=== PATIENT | male | born 1955 | race Caucasian/White ===

== ENCOUNTER 2025-01-23 10:29 | Emergency (ER) | payer MEDICARE, OTHER ==
[~2025-01-23] VITALS: Ht 177.8 cm; Wt 127.0 kg
--- NOTE | 2025-01-23 10:37 | ERN ---
ED Note History of Present Illness Stated Complaint: BACK PAIN Chief Complaint: Back Pain-No Injury Time Seen by MD: 10:30 Dictation: PATIENT IS A 69-YEAR-OLD MALE COMING IN TODAY WITH COMPLAINTS OF RIGHT LUMBAR PAIN ONSET A WEEK AGO AND GETTING WORSE. HE DENIES ANY TRAUMA OR PRIOR SURGERIES. NO CHANGE IN BOWEL OR BLADDER FUNCTION AND NO SCIATICA OR RADICULOPATHY. HE STATES HE HAS TAKING LEFTOVER TRAMADOL FROM A PRIOR SURGERY TO HIS SHOULDER, NO LOCAL DOCTOR. STATES HE HAS NOT TAKEN ANYTHING PRIOR TO ARRIVAL FOR PAIN TODAY. Allergies: Coded Allergies: Penicillins (Unverified Allergy, Unknown, 01/23/25) Home Meds Active Scripts Omeprazole (Omeprazole) 40 Mg Capsule.dr, 1 CAP PO DAILY for 30 Days, #30 CAP 0 Refills Prov:HENOK MENDEZ NP 01/23/25 Ibuprofen (Ibuprofen 800 mg Tab) 800 Mg Tab, 800 MG PO Q8H PRN for fever or pain, #30 TAB 0 Refills Prov:HENOK MENDEZ NP 01/23/25 Prednisone (Prednisone) 20 Mg Tablet, 1 TAB PO AD for 6 Days, #14 TAB 0 Refills TAKE 1 TAB BY MOUTH THREE TIMES PER DAY X3 DAYS, THEN TAKE 1 TAB BY MOUTH TWICE A DAY X2 DAYS, THEN TAKE 1 TAB BY MOUTH ONCE A DAY X1 DAY. Prov:HENOK MENDEZ NP 01/23/25 Cyclobenzaprine HCl (Cyclobenzaprine HCl) 10 Mg Tablet, 1 TAB PO TID for muscle spasms for 10 Days, #30 TAB 0 Refills Prov:HENOK MENDEZ NP 01/23/25 Past Medical History RN Note Reviewed/Agreed w/PFSH: Yes Review of System Dictation CONSTITUTIONAL: NEGATIVE EXCEPT FOR HPI HEAD/FACE: NEGATIVE EXCEPT FOR HPI EENT: NEGATIVE EXCEPT FOR HPI RESPIRATORY: NEGATIVE EXCEPT FOR HPI GASTROINTESTINAL/ABDOMINAL: NEGATIVE EXCEPT FOR HPI GENITOURINARY: NEGATIVE EXCEPT FOR HPI MUSCULOSKELETAL: NEGATIVE EXCEPT FOR HPI RIGHT LOW BACK PAIN INTEGUMENTARY: NEGATIVE EXCEPT FOR HPI NEUROLOGICAL/PSYCH: NEGATIVE EXCEPT FOR HPI HEMATOLOGIC/LYMPHATIC: NEGATIVE EXCEPT FOR HPI ALL SYSTEMS NEGATIVE, EXCEPT NOTED ABOVE. 13 POINT REVIEW OF SYSTEMS ASSESSED AND ALL NEGATIVE EXCEPT FOR ABOVE. Initial Vital Sign VS Vital Signs Date Time Temp Pulse Resp B/P (MAP) Pulse Ox O2 Delivery O2 Flow Rate FiO2 01/23/25 10:32 97.9 65 16 181/97 97 Room Air 0 01/23/25 11:49 21 Physical Exam Dictation VITAL SIGNS REVIEWED GENERAL APPEARANCE: ALERT, ORIENTED X 3, MODERATE ACUTE DISTRESS, WELL DEVELOPED, NOURISHED. HEAD AND FACE: NON-TRAUMATIC. EYES: PERRL, PINK CONJUNCTIVAS, EYELID NO TRAUMA, ANTERIOR CHAMBER WITH ARCUS SENILIS. EARS: PINNAS INTACT AND NO SIGNS OF TRAUMA OR ERYTHEMA EAR CANALS CLEAR AND NO DISCHARGE TM NO ERYTHEMA NOSE: NO DISCHARGE, NO BLEEDING. OROPHARYNX: MOUTH NORMAL, TONGUE PINK, PHARYNX CLEAR,NO ERYTHEMA, TONSILS NO EXUDATES, NO ABSCESSES NOTED, MUCOUS MEMBRANE MOIST NECK: SUPPLE, NON-TENDER, NO THYROMEGALY, NO MASSES, NO JVD, NO BRUITS BREAST:DEFERRED CHEST:NO TENDERNESS, NO CREPITUS, NO PARADOXICAL MOVEMENT, NO RETRACTIONS LUNGS:CLEAR, WELL-VENTILATED, SYMMETRIC, NO RALES, NO WHEEZING, NO RHONCHI, NO STRIDOR, GOOD BREATH SOUNDS BILATERALLY HEART: REGULAR RATE, REGULAR RHYTHM, NO MURMUR, NO GALLOPS VASCULAR: NO PERIPHERAL EDEMA, ABDOMEN: SOFT, POSITIVE BOWEL SOUNDS, NONDISTENDED, NO GUARDING, NONTENDER, NO REBOUND, NO MASSES NO HEPATOMEGALY, NO SPLENOMEGALY, NO NORIEGA'S SIGN, NO HERNIAS. RECTAL: DEFERRED GENITAL: DEFERRED NEUROLOGICAL: NORMAL SPEECH, MOTOR FUNCTION INTACT, SENSORY FUNCTION INTACT MUSCULOSKELETAL: NECK NONTENDER, FULL RANGE OF MOTION, RIGHT LATERAL LUMBOSACRAL TENDERNESS WITH SPASM NOTED., FULL RANGE OF MOTION, NEGATIVE STRAIGHT LEG RAISE BILATERALLY 10 EXTREMITIES: NONTENDER, FULL RANGE OF MOTION SKIN: COLOR PINK, DRY, NO TURGOR, NO RASH, NO LACERATIONS, NO ABRASIONS, NO CONTUSIONS. LYMPHATIC: DEFERRED Results (Laboratory/Radiology) Laboratory/Radiology LUMBAR X-RAY DEMONSTRATES DEGENERATIVE CHANGES ONLY. REASON: NON TRAUMA RIGHT LATERAL LUMBAR SACRAL PAIN. ORDERING PHYSICIAN: HENOK MENDEZ NP PROCEDURE: LUMB 2 3VW - LUMBAR SPINE 2-3VWS Exam Type: LUMBAR SPINE 2-3VWS Clinical Information: NON TRAUMA RIGHT LATERAL LUMBAR SACRAL PAIN. Comparison: None Findings: Exam of the lumbosacral spine demonstrates no evidence of fracture or subluxation. There are moderate spondylitic changes. The facet joints show moderate degenerative changes. There is straightening consistent with spasm. The disc spaces are intact. Bone mineralization is normal. Impression: Spondylitic changes and degenerative changes of the apophyseal joints as noted. Labs Reviewed?: Yes ED Course ED Course Orders Procedure Category Date Status Time Lumbar Spine 2-3vws RAD 01/23/25 Resulted 10:33 Dexamethasone 4mg/Ml PHA 01/23/25 Complete 1ml Vial (Dexametha 11:00 Cyclobenzaprine Hcl PHA 01/23/25 Complete (Cyclobenzaprine Hcl 11:00 Ketorolac 60mg/2ml PHA 01/23/25 Complete (Toradol 60mg/2ml) 11:00 Hydrocodone/Apap PHA 01/23/25 Complete 5/325 ([place] 5/325mg) 11:00 Current Medications Medications (Trade) Dose Ordered Sig/Cornelio Route PRN Reason Start Time Stop Time Status Last Admin Dose Admin Acetaminophen/ Hydrocodone Bitart (NORco 5/325MG) 1 tab ONCE ONCE PO 01/23/25 11:00 01/23/25 11:01 DC 01/23/25 11:59 Cyclobenzaprine HCl (Cyclobenzaprine HCl) 10 mg ONCE ONCE PO 01/23/25 11:00 01/23/25 11:01 DC 01/23/25 11:59 Dexamethasone Sodium Phosphate (dexaMETHasone 4MG/ML 1ML VIAL) 8 mg ONCE ONCE IM 01/23/25 11:00 01/23/25 11:01 DC 01/23/25 11:59 Ketorolac Tromethamine (toRADol 60MG/ 2ML) 60 mg ONCE ONCE IM 01/23/25 11:00 01/23/25 11:01 DC 01/23/25 11:59 Vital Signs Date Time Temp Pulse Resp B/P (MAP) Pulse Ox O2 Delivery O2 Flow Rate FiO2 01/23/25 11:49 97.9 62 16 167/74 97 Room Air* 0 21 01/23/25 10:32 97.9 65 16 181/97 97 Room Air 0 1132/PATIENT STATES PAIN MARKEDLY IMPROVED AFTER TREATMENT. WE WILL BE DISCHARGED HOME WITH IBUPROFEN FLEXERIL AND PREDNISONE. TOLD NO LIFTING OR ACCEPT MOVEMENTS UNTIL CLEARED BY HIS DOCTOR. HE WILL BE GIVEN A LIST OF LOCAL DOCTORS STATES HOWEVER HE IS GOING BACK TO [place] IN THREE WEEKS. Medical Decision Making MDM MEDICAL DISCHARGE MAKING BASED ON X-RAY AND PAIN MANAGEMENT. PATIENT SHOWS DEGENERATIVE CHANGES ON LUMBAR SPINE. HE WAS MADE AWARE HE MADE AN MRI IN THE NEXT SEVERAL DAYS WHEN HE SEES HIS DOCTOR IN [place] GIVEN PREDNISONE/IBUPROFEN/FLEXERIL/OMEPRAZOLE DX & DISP Disposition: Discharge Departure Impression: Primary Impression: Acute exacerbation of chronic low back pain Condition: Stable Scripts Omeprazole (Omeprazole) 40 Mg Capsule.dr 1 CAP PO DAILY for 30 Days, #30 CAP 0 Refills Prov: HENOK MENDEZ NP 01/23/25 Ibuprofen (Ibuprofen 800 mg Tab) 800 Mg Tab 800 MG PO Q8H PRN for fever or pain, #30 TAB 0 Refills Prov: HENOK MENDEZ NP 01/23/25 Prednisone (Prednisone) 20 Mg Tablet 1 TAB PO AD for 6 Days, #14 TAB 0 Refills TAKE 1 TAB BY MOUTH THREE TIMES PER DAY X3 DAYS, THEN TAKE 1 TAB BY MOUTH TWICE A DAY X2 DAYS, THEN TAKE 1 TAB BY MOUTH ONCE A DAY X1 DAY. Prov: HENOK MENDEZ NP 01/23/25 Cyclobenzaprine HCl (Cyclobenzaprine HCl) 10 Mg Tablet 1 TAB PO TID for muscle spasms for 10 Days, #30 TAB 0 Refills Prov: HENOK MENDEZ NP 01/23/25 Additional Instructions: FOLLOW-UP WITH PRIMARY CARE PROVIDER IN 1 TO 2 DAYS. TAKE MEDICATIONS DIRECTED HERE IN THE EMERGENCY ROOM. OKAY TO CONTINUE HOME MEDICATIONS UNLESS OTHERWISE DISCUSSED DURING YOUR VISIT IN THE EMERGENCY ROOM TODAY. RETURN TO YOUR NEAREST EMERGENCY ROOM IF SYMPTOMS WORSEN OR IF THERE IS NO IMPROVEMENT. CALL 911 IF YOU NEED IMMEDIATE ASSISTANCE. TAKE TYLENOL OR MOTRIN [id number] NEEDED AND IF NO CONTRAINDICATIONS ARE PRESENT. INCREASE ORAL HYDRATION. A WOUND CULTURE OR URINE CULTURE WAS ORDERED HERE IN THE E MERGENCY ROOM DEPARTMENT PLEASE FOLLOW-UP WITH PRIMARY CARE PROVIDER AND ADVISE THEM TO GET REPEAT PORTS FROM OUR FACILITY. IF YOU HAD ANY JAVIER WRAP/SPLINTS THAT WERE APPLIED HERE, PLEASE DO NOT REMOVE THEM UNTIL YOU SEE YOUR PRIMARY CARE OR SPECIALTY. TAKE IBUPROFEN AND FLEXERIL EVERY8 HOURS WITH FOOD FOR THE NEXT THREE DAYS. TAKE PREDNISONE DIRECTED WITH FOOD UNTIL GONE. WARM COMPRESSES TO PAIN THREE TO 4 TIMES A DAY AND NO LIFTING GREATER THAN 10 LB UNTIL CLEARED BY YOUR DOCTOR. Referrals: SELF,REFERRAL (PCP) Time of Disposition: 11:36 I have reviewed the case, and I agree with, Diagnosis and Plan HENOK MENDEZ NP Jan 23, 2025 10:37 KIP VASQUEZ DO Jan 23, 2025 12:49
--- NOTE | 2025-01-23 11:18 | HMCIMG ---
Exam Type: LUMBAR SPINE 2-3VWS Clinical Information: NON TRAUMA RIGHT LATERAL LUMBAR SACRAL PAIN. Comparison: None Findings: Exam of the lumbosacral spine demonstrates no evidence of fracture or subluxation. There are moderate spondylitic changes. The facet joints show moderate degenerative changes. There is straightening consistent with spasm. The disc spaces are intact. Bone mineralization is normal. Impression: Spondylitic changes and degenerative changes of the apophyseal joints as noted.
[2025-01-23] MEDS ORDERED: OMEP40CA21 PO (11:37)
[2025-01-23] MEDS ORDERED: PRED20TA3 PO (11:37)
[2025-01-23] MEDS ORDERED: CYCL-309 PO (11:37)
[2025-01-23] MEDS ORDERED: IBUP-2077 PO (11:37)
[2025-01-23 11:49] VITALS: BP 167/74; PULSE 62; RESP 16; TEMP 97.9; O2SAT 97
[2025-01-23] MEDS: dexaMETHasone SOD PHOSPHATE 4 MG/ML 1ML VIAL IM ONE (11:59)
[2025-01-23] MEDS: HYDROcodone/APAP 5/325 1 TAB TABLET PO ONE (11:59)
[2025-01-23] MEDS: ketOROlac 60 MG VIAL (30MG/ML) IM ONE (11:59)
[2025-01-23] MEDS: CYCLOBENZAPRINE HCL 10 MG TABLET PO ONE (11:59)
== END 2025-01-23 12:09 | disposition home or self-care (01) ==
LOC: EDH 10:29
DX: G89.29 Other chronic pain (principal); M54.50 Low back pain, unspecified; Z79.899 Other long term (current) drug therapy; Z88.0 Allergy status to penicillin
CPT/HCPCS: 99284; 72100; 96372 ×2; J1100; J1885